=== PATIENT | female | born 1980 | race African-American/Black ===

== ENCOUNTER 2023-09-13 18:38 | Inpatient (IN) | payer SELFPAY ==
[2023-09-13] MEDS ORDERED: FUROSEMIDE 20 MG/ 2ML VIAL ONE ×2 (19:49→23:12)
[2023-09-13 20:26] LABS: Specific Gravity 1.005 (1.005-1.030); Sqamous Epithelial <5 /HPF (None Seen); Urine Bacteria <20 /HPF (<20); Urine Bilirubin NEGATIVE (Negative); Urine Blood 3+ (Negative); Urine Clarity Turbid (Clear); Urine Color Light-Yellow (Yellow); Urine Culture Reflex Order REFLEXED; Urine Glucose NEGATIVE (Negative); Urine Ketones NEGATIVE (Negative); Urine Micro Reflex YN NO BILL MICROSCOPIC; Urine Nitrite NEGATIVE (Negative); Urine Protein TRACE (Negative); Urine RBC <5 /HPF (None Seen); Urine Urobilinogen Normal (Normal); Urine pH 6.5 (5.0-7.0)
[2023-09-13 20:27] LABS: Specific Gravity 1.005 (1.005-1.030)
--- NOTE | 2023-09-13 20:32 | RAD REPORT ---
EXAM DESCRIPTION: RAD - Chest Single View - 09/13/2023 8:20 pm CLINICAL HISTORY: SOB;Swelling COMPARISON: No comparisons FINDINGS: Lines: None. Lungs: No evidence of edema or pneumonia. Pleural: No significant pleural effusions or pneumothorax. Cardiac: Moderate cardiomegaly. Mediastinum: Within normal limits. Bones: No acute fractures. Other: None IMPRESSION: No acute cardiopulmonary disease. Moderate cardiomegaly.
[2023-09-13 20:34] LABS: Absolute Eosinophils 0.1 K/uL (0-0.5); Absolute Lymphocytes (CBC) 1.1 K/uL (0.7-4.9); Absolute Monocytes 0.5 K/uL (0.1-1.3); Absolute Neutrophil 4.7 K/uL (1.8-8.0); Basophils % 0.4 % (0-1.3); Eosinophils % 2.2 % (0-4.4); Hematocrit 26.6 % (36.0-45.0); Hemoglobin 7.9 g/dL (12.0-15.0); Lymphocytes % 16.6 % (15.3-44.8); MCH 18.6 pg (27.0-35.0); MCHC 29.7 g/dL (32.0-36.0); MCV 62.8 fL (80-100); Monocytes % 7.3 % (3.3-12.3); Neutrophils % 73.5 % (41.7-73.7); Nucleated Red Blood Cells % 0.3 % (0-0); Platelets 342 thou/uL (152-406); RBC Red Blood Cell Count 4.24 M/uL (3.86-4.86)
[2023-09-13 20:42] LABS: Albumin 3.1 g/dL (3.4-5.0); Albumin/Globulin Ratio 0.9 (1.1-1.8); Anion Gap 7.6 mEq/L (5.0-15.0); Bilirubin Direct 0.2 mg/dL (0-0.2); Bilirubin Indirect, Calculated 0.3 mg/dL (0.2-0.8); Bilirubin Total 0.5 mg/dL (0.2-1.0); Globulin 3.4 g/dL (2.3-3.5); Magnesium 1.5 mg/dL (1.6-2.4); Potassium 3.6 mEq/L (3.5-5.1); Protein, Total 6.5 g/dL (6.4-8.2); Troponin High Sensitivity 55.9 pg/mL (<58.9)
[2023-09-13 21:02] LABS: PT Prothrombin Time 11.7 SECONDS (9.5-12.5); Protime INR 1.07
[2023-09-13 21:11] LABS: Anisocytosis 2+; Blood Morphology Comment NOTED (NOT SEEN); Hypochromasia 2+; Microcytosis 2+; Ovalocytes 1+; Platelet Estimate ADEQ; Poikilocytosis 1+; Polychromasia 1+; White Blood Cell Scan OK (OK)
--- NOTE | 2023-09-13 21:17 | ER ---
Nurse's Notes [facility] Name: Ara Pollock Age: 42 yrs Sex: Female : 1980 Arrival Date: 09/13/2023 Time: 18:38 Bed 7 Private MD: Diagnosis: Unspecified combined systolic (congestive) and diastolic (congestive) heart failure Presentation: 09/12 18:50 Chief complaint: Patient states: bilateral leg/feet swelling. Coronavirus screen: At as6 this time, the client does not indicate any symptoms associated with coronavirus-19. Ebola Screen: No symptoms or risks identified at this time. Initial Sepsis Screen: Does the patient meet any 2 criteria? No. Patient's initial sepsis screen is negative. Does the patient have a suspected source of infection? No. Patient's initial sepsis screen is negative. Risk Assessment: Do you want to hurt yourself or someone else? Patient reports no desire to harm self or others. Onset of symptoms was September 01, 2023. 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 - Social history:: Smoking status: Patient reports the use of cigarette tobacco products, denies chronic smoking, but will smoke occasionally. Screenin:06 [facility] ED Fall Risk Assessment (Adult) History of falling in the last 3 months, cm10 including since admission No falls in past 3 months (0 pts) Confusion or Disorientation No (0 pts) Intoxicated or Sedated No (0 pts) Impaired Gait No (0 pts) Mobility Assist Device Used No (0 pt) Altered Elimination No (0 pt) Score/Fall Risk Level 0 - 2 = Low Risk Oriented to surroundings, Maintained a safe environment, Hourly rounding (assess needs \T\ fall precautionary measures) done. Abuse screen: Denies threats or abuse. Denies injuries from another. Nutritional screening: No deficits noted. Tuberculosis screening: No symptoms or risk factors identified. Assessment: 20:04 General: Appears in no apparent distress. comfortable, Behavior is calm, cooperative. cm10 Pain: Complains of pain in right leg and left leg. Neuro: No deficits noted. Level of Consciousness is awake, alert, obeys commands, Oriented to person, place, time, situation. Cardiovascular: Reports shortness of breath, Patient's skin is warm and dry. Respiratory: No deficits noted. Airway is patent Respiratory effort is even, unlabored, Respiratory pattern is regular, symmetrical. Derm: Skin is intact, Skin is pink, warm \T\ dry. Musculoskeletal: Range of motion: intact in all extremities, Swelling present in right leg and left leg. 20:41 Reassessment: Pt noted to be in her regular clothes and walking in front of the nurses cm10 station. Patient states that she is going outside to smoke. Pt made aware that she cannot go outside to smoke with an IV in her arm. Pt states that she would like the IV taken out and she would like to leave. Marco Seals made aware. Per provider, pt will be returning after smoking. Pt leaving ambulatory with steady gait, A\T\Ox4. 21:16 Reassessment: Pt noted to have not returned back to ED. Provider made aware. cm10 21:43 Reassessment: Pt returned back to the ED at this time and states that she would like to cm10 continue being seen. 23:04 Reassessment: Pt noted to be eating at this time. cm10 09/13 01:00 Reassessment: Patient appears in no apparent distress at this time. Patient and/or cm10 family updated on plan of care and expected duration. Pain level reassessed. Patient is alert, oriented x 3, equal unlabored respirations, skin warm/dry/pink. Vital Signs: 09/12 18:50 BP 169 / 118; Pulse 94; Resp 18 S; Temp 97.4(TE); Pulse Ox 100% on R/A; Weight 49.9 kg as6 (R); Height 5 ft. 1 in. (R); Pain 9/10; 19:54 BP 176 / 108; Pulse 90; Resp 18; Pulse Ox 99% ; cm10 20:00 BP 169 / 105; Pulse 88; Resp 16; Pulse Ox 99% ; cm10 21:59 BP 176 / 120; Pulse 80; Resp 18; Pulse Ox 100% on R/A; cm10 23:02 BP 172 / 103; Pulse 81; Resp 18; Pulse Ox 100% on R/A; cm10 23:29 BP 142 / 89; Pulse 80; Resp 18; Pulse Ox 100% on R/A; cm10 09/13 01:19 BP 157 / 81; Pulse 82; Resp 18; Temp 97.3(IR); Pulse Ox 100% ; cm10 09/12 18:50 Body Mass Index 20.78 (49.90 kg, 154.94 cm) as6 09/12 18:50 Pain Scale: Adult as6 ED Course: 09/12 18:45 Patient arrived in ED. ra3 18:45 Marco Seals PA is PHCP. cp 18:45 Alexey Mendez MD is Attending Physician. cp 18:52 Triage completed. as6 18:52 Arm band placed on. as6 18:53 Mich Gould, RN is Primary Nurse. bp 19:23 Amado Villatoro MD is Attending Physician. cp 19:59 EKG done, by ED staff, reviewed by Marco MORALES. mb9 20:04 Basic Metabolic Panel Sent. cm10 20:04 CBC with Diff Sent. cm10 20:04 D-Dimer Sent. cm10 20:04 LFT's Sent. cm10 20:04 Magnesium Sent. cm10 20:04 NT PRO-BNP Sent. cm10 20:04 PT-INR Sent. cm10 20:04 Troponin HS Sent. cm10 20:04 Test, Urine Sent. cm10 20:04 Urinalysis W/Microscopic Sent. cm10 20:04 Initial lab(s) drawn, by ak, sent to lab. Urine collected: clean catch specimen. cm10 Inserted saline lock: 20 gauge in right forearm, using aseptic technique. Blood collected. 20:06 Patient has correct armband on for positive identification. Placed in gown. Bed in low cm10 position. Call light in reach. Side rails up X2. Provided Education on: ER process and procedures.. Client placed on continuous cardiac and pulse oximetry monitoring. NIBP monitoring applied. library monitor on. Door closed. Noise minimized. Warm blanket given. 20:22 XRAY Chest (1 view) In Process Unspecified. EDMS 20:41 IV discontinued, intact, bleeding controlled, No redness/swelling at site. Pressure cm10 dressing applied. 21:43 Primary Nurse role handed off by Mich Gould, RN cm10 21:59 Katja Couch, RN is Primary Nurse. cm10 22:[address] via stretcher. cm10 22:24 Inserted saline lock: 20 gauge in left forearm, using aseptic technique. cm10 22:29 CT Chest For PE Angio In Process Unspecified. EDMS 22:41 Patient moved back from CT. cm10 23:02 Nurse Practitioner and/or Physician Correctional Lieutenant to see patient. cm10 23:07 Monik Jesus MD is Hospitalizing Provider. cp 23:30 Admitting physician to see patient. cm10 09/13 00:38 US Extremity Venous W Compression Barry In Process Unspecified. EDMS 01:20 No provider procedures requiring assistance completed. Patient admitted, IV remains in cm10 place. Administered Medications: 09/12 20:04 Drug: Furosemide IVP 20 mg IVP once; give over 2 minutes Route: IVP; Site: right cm10 forearm; 23:03 Follow up: Response: No adverse reaction cm10 22:15 Drug: hydrALAZINE IVP 10 mg IVP once Route: IVP; Site: left forearm; cm10 23:03 Follow up: Response: No adverse reaction; Blood pressure is unchanged cm10 23:27 Drug: Furosemide IVP 20 mg IVP once; give over 2 minutes Route: IVP; Site: left forearm;cm10 09/13 01:19 Follow up: Response: No adverse reaction cm10 Medication: 09/12 20:06 VIS not applicable for this client. cm10 Outcome: 21:17 Patient left the ED. cm10 23:07 Decision to Hospitalize by Provider. cp 09/13 01:21 Admitted to ER Hold. Please see [facility] for further documentation. cm10 Condition: good Instructed on the need for admit, 14:12 Patient left the ED. ll1 Signatures: Dispatcher [employer] EDMS Marco Seals PA PA cp Mich Gould, RN Mike Welch RN RN ll1 Remy Hadley RN RN as6 Stephanie Gamble RN RN mb9 Katja Couch RN RN cm10 Madison Parrish ra3 Corrections: (The following items were deleted from the chart) 09/12 21:16 20:41 Reassessment: Pt noted to be in her regular clothes and walking in front of the cm10 nurses station. Patient states that she is going outside to smoke. Pt made aware that she cannot go outside to smoke with an IV in her arm. Pt states that she would like the IV taken out and she would like to leave. Marco Seals made aware. cm10 21:30 20:41 Reassessment: Pt noted to be in her regular clothes and walking in front of the cm10 nurses station. Patient states that she is going outside to smoke. Pt made aware that she cannot go outside to smoke with an IV in her arm. Pt states that she would like the IV taken out and she would like to leave. Marco Seals made aware. Per provider, pt will be returning after smoking. cm10
[2023-09-13] MEDS ORDERED: HYDRALAZINE HCL 20 MG/ML VIAL ONE (22:11)
--- NOTE | 2023-09-13 22:35 | RAD REPORT ---
EXAM DESCRIPTION: CT - Chest For Pe Angio - 09/13/2023 10:27 pm CLINICAL HISTORY: SOB COMPARISON: No comparisons TECHNIQUE: Dynamically enhanced axial 3 mm thick images of the chest were obtained during administra tion of <100> mL Isovue 370 IV contrast. Coronal and oblique reconstruction images were generated and reviewed. Exam utilizes a protocol for optimal evaluation of pulmonary arterial tree. Maximum intensity projections 3D imaging was utilized All CT scans are performed using dose optimization technique as appropriate and may include automated exposure control or mA/KV adjustment according to patient size. FINDINGS: Chest Wall: No suspicious thyroid nodules or pathologic lymphadenopathy. Lungs: No acute abnormality. Pleura: No significant effusions or pneumothorax. Mediastinum/genoveva: No pathologic lymphadenopathy. Pulmonary arteries/Aorta: No filling defect identified. No aortic aneurysm. Enlarged main pulmonary a rtery. Heart: No significant pericardial effusion. Moderate global cardiomegaly. Upper abdomen: Low-density liver lesions noted which are incompletely characterized but statistically benign. .Reflux of contrast into the hepatic veins. Bones: No acute abnormality. IMPRESSION: Negative for pulmonary embolism. Moderate global cardiomegaly. Enlarged main pulmonary a rtery and reflux of contrast into the hepatic veins suggestive of pulmonary artery hypertension/right heart failure.
--- NOTE | 2023-09-13 23:08 | EDPHYS ---
Physician Documentation [facility] Name: Ara Pollock Age: 42 yrs Sex: Female : 1980 Arrival Date: 09/13/2023 Time: 18:38 Bed 7 Private MD: ED Physician Amado Villatoro HPI: 09/12 19:50 This 42 yrs old Black Female presents to ER via Ambulatory with complaints of Feet cp Swelling. 19:50 The patient has shortness of breath with light activity. Onset: The symptoms/episode cp began/occurred gradually, over past 1-2 weeks. Duration: The symptoms are continuous, and are steadily getting worse. Associated signs and symptoms: Pertinent positives: swelling of legs, weight gain, Pertinent negatives: chest pain, non-productive cough, diaphoresis, fever, vomiting. Severity of symptoms: in the emergency department the symptoms are unchanged despite home interventions. The patient has not experienced similar symptoms in the past. 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 - Social history:: Smoking status: Patient reports the use of cigarette tobacco products, denies chronic smoking, but will smoke occasionally. ROS: 19:55 Constitutional: Positive for fatigue, Negative for body aches, chills, fever, poor PO cp intake, 19:55 Eyes: Negative for injury, pain, redness, and discharge, cp 19:55 ENT: Negative for drainage from ear(s), ear pain, sore throat, difficulty swallowing, difficulty handling secretions, 19:55 Cardiovascular: Positive for edema, Negative for chest pain, palpitations, 19:55 Respiratory: Positive for shortness of breath, on exertion. Negative for cough, wheezing, 19:55 Abdomen/GI: Negative for abdominal pain, vomiting, diarrhea, constipation, 19:55 : Negative for urinary symptoms, 19:55 Neuro: Negative for altered mental status, headache, numbness, syncope, near syncope, weakness, 19:55 All other systems are negative, Exam: 20:00 Constitutional: The patient appears in no acute distress, alert, awake, cp non-diaphoretic, non-toxic, well developed, well nourished, 20:00 Head/Face: Normocephalic, atraumatic. cp 20:00 Eyes: Periorbital structures: appear normal, Conjunctiva: normal, no exudate, no injection, Sclera: no appreciated abnormality, Lids and lashes: appear normal, bilaterally, 20:00 ENT: External ear(s): are unremarkable, Nose: is normal, Mouth: Lips: moist, Oral mucosa: pink and intact, moist, Posterior pharynx: Airway: no evidence of obstruction, patent, swelling, is not appreciated, erythema, is not appreciated, 20:00 Neck: ROM/movement: is normal, is supple, without pain, no range of motions limitations, 20:00 Chest/axilla: Inspection: normal, 20:00 Cardiovascular: Rate: normal, Rhythm: regular, Edema: extending from feet to lower abdomen, JVD: is not appreciated, 20:00 Respiratory: the patient does not display signs of respiratory distress, Respirations: labored breathing, that is mild, Breath sounds: are clear throughout, no decreased breath sounds, no stridor, no wheezing, 20:00 Abdomen/GI: Inspection: distension, that is mild, in the right lower quadrant and left lower quadrant, Bowel sounds: active, all quadrants, Palpation: abdomen is soft and non-tender, in all quadrants, 20:00 Back: pain, is absent, ROM is normal, 20:00 Skin: cellulitis, is not appreciated, no rash present. 20:00 Neuro: Orientation: to person, place \T\ time. Mentation: is normal, Motor: moves all fours, strength is normal, Sensation: is normal, Vital Signs: 18:50 BP 169 / 118; Pulse 94; Resp 18 S; Temp 97.4(TE); Pulse Ox 100% on R/A; Weight 49.9 kg as6 (R); Height 5 ft. 1 in. (R); Pain 9/10; 19:54 BP 176 / 108; Pulse 90; Resp 18; Pulse Ox 99% ; cm10 20:00 BP 169 / 105; Pulse 88; Resp 16; Pulse Ox 99% ; cm10 21:59 BP 176 / 120; Pulse 80; Resp 18; Pulse Ox 100% on R/A; cm10 23:02 BP 172 / 103; Pulse 81; Resp 18; Pulse Ox 100% on R/A; cm10 23:29 BP 142 / 89; Pulse 80; Resp 18; Pulse Ox 100% on R/A; cm10 04 01:19 BP 157 / 81; Pulse 82; Resp 18; Temp 97.3(IR); Pulse Ox 100% ; cm10 09/12 18:50 Body Mass Index 20.78 (49.90 kg, 154.94 cm) as6 09/12 18:50 Pain Scale: Adult as6 MDM: 09/12 19:01 Patient medically screened. cp 20:00 Differential diagnosis: Anemia asthma, CHF exacerbation, Chronic Obstructive Pulmonary cp Disease Myocardial Infarction pneumonia, pulmonary edema, Pulmonary Embolism Unstable Angina. 23:10 Data reviewed: vital signs, nurses notes, lab test result(s), EKG, radiologic studies, cp CT scan, plain films, ultrasound, and as a result, I will admit patient. 23:10 Management of patient was discussed with the following: Hospitalist: DR Jesus will admit cp after discussion. I considered the following discharge prescriptions or medication management in the emergency department Medications were administered in the Emergency Department. See MAR. Counseling: I had a detailed discussion with the patient and/or guardian regarding the historical points, exam findings, and any diagnostic results supporting the discharge/admit diagnosis, the presence of at least one elevated blood pressure reading (>120/80) during this emergency department visit, lab results, radiology results, the need for further work-up and treatment in the hospital. Response to treatment: the patient's symptoms have mildly improved after treatment. 09/12 19:43 Order name: Basic Metabolic Panel; Complete Time: 20:51 cp 09/12 20:52 Interpretation: Normal except: CL 108; CRE 1.13; GFR 63; CA 8.2. cp 09/12 19:43 Order name: CBC with Diff; Complete Time: 21:56 cp 09/12 20:53 Interpretation: Normal except: HGB 7.9; HCT 26.6; MCV 62.8; MCH 18.6; MCHC 29.7; RDW cp 22.0. 09/12 19:43 Order name: D-Dimer; Complete Time: 21:56 cp 09/12 19:43 Order name: LFT's; Complete Time: 20:51 cp 09/12 20:52 Interpretation: Normal except: ALK 160; ALB 3.1; A/G 0.9. cp 09/12 19:43 Order name: Magnesium; Complete Time: 20:51 cp 09/12 20:53 Interpretation: Abnormal: MG 1.5. cp 09/12 19:43 Order name: NT PRO-BNP; Complete Time: 20:51 cp 09/12 20:52 Interpretation: Abnormal: NT PRO-BNP 9649. cp 09/12 19:43 Order name: PT-INR; Complete Time: 21:56 cp 09/12 19:43 Order name: Troponin HS; Complete Time: 20:51 cp 09/12 19:43 Order name: Urinalysis W/Microscopic; Complete Time: 20:34 cp 09/12 20:54 Interpretation: Normal except: UCLA Turbid; UBLD 3+; UPROT TRACE; UESTR 250; UWBC 10-20.cp 09/12 19:43 Order name: Test, Urine; Complete Time: 20:34 cp 09/12 20:33 Order name: Urine Culture EDNH 09/12 21:11 Order name: CBC Smear Scan; Complete Time: 21:56 EDMS 09/12 23:57 Order name: CBC with Automated Diff EDMS 09/12 23:57 Order name: CBC with Automated Diff; Complete Time: 12:58 EDMS 09/12 23:57 Order name: Comprehensive Metabolic Panel EDMS 09/12 23:57 Order name: Comprehensive Metabolic Panel; Complete Time: 12:58 EDMS 09/12 23:57 Order name: Lipid Profile EDMS 09/12 23:57 Order name: Lipid Profile; Complete Time: 12:58 EDMS 09/12 23:57 Order name: Magnesium EDMS 09/12 23:57 Order name: Magnesium; Complete Time: 12:58 EDMS 09/12 23:57 Order name: NT PRO-BNP EDMS 09/12 23:57 Order name: NT PRO-BNP; Complete Time: 12:58 EDMS 09/12 23:57 Order name: Phosphorus EDMS 09/12 23:57 Order name: Phosphorus; Complete Time: 12:58 EDMS 09/12 23:57 Order name: Protime (+INR) EDMS 09/12 23:57 Order name: Protime (+INR); Complete Time: 12:58 EDMS 09/12 23:57 Order name: PTT, Activated Partial Thromb EDMS 09/12 23:57 Order name: PTT, Activated Partial Thromb; Complete Time: 12:58 EDMS 09/12 23:57 Order name: Troponin High Sensitivity EDMS 09/12 23:57 Order name: Troponin High Sensitivity; Complete Time: 12:58 EDMS 09/13 00:00 Order name: Aldosterone EDMS 09/13 00:00 Order name: Aldosterone EDMS 09/13 00:00 Order name: Miscellaneous Test Lab EDMS 09/13 00:00 Order name: Miscellaneous Test Lab EDMS 09/13 00:26 Order name: Iron; Complete Time: 12:58 EDMS 09/13 00:26 Order name: Ferritin; Complete Time: 12:58 EDMS 09/13 00:26 Order name: Retic Count; Complete Time: 12:58 EDMS 09/13 09:21 Order name: Transferrin Sat/Iron Binding; Complete Time: 12:58 EDMS 09/13 09:57 Order name: CBC Smear Scan; Complete Time: 12:58 EDMS 09/13 11:11 Order name: Potassium; Complete Time: 12:58 EDMS 09/13 12:26 Order name: Troponin High Sensitivity; Complete Time: 12:58 EDMS 09/12 19:43 Order name: XRAY Chest (1 view); Complete Time: 20:34 cp 09/12 20:51 Order name: US Extremity Venous W Compression Barry; Complete Time: 12:58 cp 09/12 21:58 Order name: CT Chest For PE Angio; Complete Time: 22:56 cp 09/12 23:57 Order name: Echo with Doppler EDMS 09/13 00:00 Order name: Chest Single View; Complete Time: 12:58 EDMS 09/13 00:00 Order name: Pelvis Complete EDMS 09/13 00:00 Order name: Pelvis Complete; Complete Time: 12:58 EDMS 09/12 23:57 Order name: CONS Physician Consult EDMS 09/12 19:43 Order name: Cardiac monitoring; Complete Time: 19:59 cp 09/12 19:43 Order name: EKG - Nurse/Tech; Complete Time: 19:59 cp 09/12 19:43 Order name: IV Saline Lock; Complete Time: 20:04 cp 09/12 19:43 Order name: Labs collected and sent; Complete Time: 20:04 cp 09/12 19:43 Order name: O2 Per Protocol; Complete Time: 20:04 cp 09/12 19:43 Order name: O2 Sat Monitoring; Complete Time: 20:04 cp Administered Medications: 20:04 Drug: Furosemide IVP 20 mg IVP once; give over 2 minutes Route: IVP; Site: right cm10 forearm; 23:03 Follow up: Response: No adverse reaction cm10 22:15 Drug: hydrALAZINE IVP 10 mg IVP once Route: IVP; Site: left forearm; cm10 23:03 Follow up: Response: No adverse reaction; Blood pressure is unchanged cm10 23:27 Drug: Furosemide IVP 20 mg IVP once; give over 2 minutes Route: IVP; Site: left forearm;cm10 09/13 01:19 Follow up: Response: No adverse reaction cm10 Disposition Summary: 09/13/23 23:07 Hospitalization Ordered Notes: Hospitalization Status: Inpatient Admission cp Provider: Monik Jesus cp Condition: Stable(09/13/23 23:07) cp Problem: new cp Symptoms: have improved cp Bed/Room Type: Standard cp Location: Telemetry/MedSurg (Inpatient)(09/14/23 13:51) jr Room Assignment: 220(09/14/23 13:51) jr Diagnosis - Unspecified combined systolic (congestive) and diastolic (congestive) heart failure cp Forms: - Medication Reconciliation Form cp - SBAR form cp - Leadership Thank You Letter cp Signatures: Dispatcher [employer] EDMS Marco Seals PA PA cp Garcia, Cindy, RN RN cg Slawson, Ashby, RN RN as6 Kajta Couch RN RN cm10 Safia Swenson jr Corrections: (The following items were deleted from the chart) 09/12 19:44 19:44 BASIC METABOLIC PANEL+C.LAB.BRZ ordered. EDMS EDMS 19:44 19:44 CBC+H.LAB.BRZ ordered. EDMS EDMS 19:44 19:44 D-DIMER+COAG.LAB.BRZ ordered. EDMS EDMS 19:44 19:44 HEPATIC FUNCTION+C.LAB.BRZ ordered. EDMS EDMS 19:44 19:44 MAGNESIUM+C.LAB.BRZ ordered. EDMS EDMS 19:44 19:44 PROBNP+C.LAB.BRZ ordered. EDMS EDMS 19: 19:44 PROTIME (+INR)+COAG.LAB.BRZ ordered. EDMS EDMS : 19:44 Troponin High Sensitivity+C.LAB.BRZ ordered. EDMS EDMS : 19:44 Urinalysis W/Microscopic+U.LAB.BRZ ordered. EDMS EDMS : 19:44 Test, Urine+UC.LAB.BRZ ordered. EDMS EDMS :46 21:17 Home cm10 cp 21:46 21:17 Stable cm10 cp 09/13 00:25 00:00 Ferritin ordered. EDMS EDMS 00: 00:00 Iron ordered. EDMS EDMS 00:26 00:00 Retic Count ordered. EDMS EDMS 09/12 23:07 Telemetry/MedSurg (Inpatient) [facility] 09/13 01:34 09/12 23:07 cp 09/13 13:07 09/12 19:50 Associated signs and symptoms: Pertinent positives: swelling of legs, cp Pertinent negatives: chest pain, non-productive cough, diaphoresis, fever, vomiting, cp 09/13 13:51 01:34 [facility] ER HOLD jr12 13:51 01:34 ERHOLD- jr12
[2023-09-13] MEDS ORDERED: ONDANSETRON 4 MG/2 ML VIAL IV PRN (23:49)
--- NOTE | 2023-09-13 23:56 | P.HP ---
Certification for Inpatient Patient admitted to: Inpatient With expected LOS: >2 Midnights Patient will require the following post-hospital care: None Practitioner: I am a practitioner with admitting privileges, knowledge of patient current condition, hospital course, and medical plan of care. Services: Services provided to patient in accordance with Admission requirements found in Title 42 Section 412.3 of the Code of Federal Regulations Patient History Date of Service: 09/13/23 Reason for admission: Shortness of breath - Past Medical/Surgical History -: PTSD -: Anemia -: Depression Past Surgical History: Patient denies surgical history - Family History Father Family History: Reviewed- Non-Contributory - Social History Smoking Status: Current every day smoker Alcohol use: Yes CD- Drugs: Yes Review of Systems 10-point ROS is otherwise unremarkable Physical Examination - Vital Signs Temperature: 98 F Blood Pressure: 140/80 Pulse: 80 Respirations: 18 Pulse Ox (%): 95 - Physical Exam General: Alert, In no apparent distress, Oriented x3 HEENT: Atraumatic, PERRLA, Mucous membr. moist/pink, EOMI, Sclerae nonicteric Neck: Supple, 2+ carotid pulse no bruit, No LAD, JVD distended Respiratory: Crackles/rales Cardiovascular: Regular rate/rhythm, Normal S1 S2, Systolic murmur Gastrointestinal: Normal bowel sounds, Soft and benign, Non-distended, No tenderness Musculoskeletal: No clubbing, No tenderness, Swelling Integumentary: No rashes Neurological: Normal gait, Normal speech, Normal strength at 5/5 x4 extr, Normal tone, Sensation intact, Cranial nerves 3-12 intact, Normal affect Lymphatics: No axilla or inguinal lymphadenopathy - Studies Laboratory Data (last 24 hrs) 09/13/23 09/13/23 09/13/23 20:00 20:00 20:00 WBC 6.50 Hgb 7.9 L Hct 26.6 L Plt Count 342 PT 11.7 INR 1.07 Sodium 138 Potassium 3.6 BUN 13 Creatinine 1.13 H Glucose 92 Magnesium 1.5 L Total Bilirubin 0.5 AST 36 ALT 53 Alkaline Phosphatase 160 H Assessment & Plan - Problems (Diagnosis) (1) Cardiomyopathy Status: Acute Qualifiers: Cardiomyopathy type: unspecified Qualified Code(s): I42.9 - Cardiomyopathy, unspecified (2) Right heart failure Status: Acute Qualifiers: Heart failure chronicity: unspecified Qualified Code(s): I50.810 - Right heart failure, unspecified (3) Acute blood loss anemia (ABLA) Status: Acute (4) Bilateral lower extremity edema Status: Acute (5) Alcohol use Status: Acute (6) Tobacco use Status: Acute (7) Marijuana use Status: Acute (8) Menorrhagia Status: Acute (9) PTSD (post-traumatic stress disorder) Status: Acute (10) Depression Status: Acute (11) Generalized anxiety disorder Status: Acute - Plan Plan: 1. Shortness of breath; most likely related to cardiomyopathy. Patient may have dilated cardiomyopathy secondary to alcohol abuse. She also has a prior history of substance abuse and she does have a holosystolic murmur which is also concerning for hypertrophic cardiomyopathy. Will get an echocardiogram to further evaluate. Continue with gentle diuresing until we can determine her pathology. Patient has bilateral lower extremity edema most likely reflected fr om her right-sided heart failure. JVP is to the angle of the mandible. BNP is significantly elevated. Continue with beta-bree therapy and losartan. Will need to parliamentary counsel her regarding tobacco cessation and alcohol cessation. Will check nutritional levels as well. 2. Anemia of acute blood loss; patient with heavy cycles. Patient has been having menorrhagia for quite a while. Patient has a microcytic and hypochromic anemia. She possibly has severe iron deficiency anemia. With her history of alcohol use would be concerning for folic acid and B12 deficiency as well. She will need a pelvic ultrasound and she will probably need an endometrial biopsy. She has not had a Pap smear in 2 years which she will need to follow-up with gynecology and complete. Will refer her over to Dr. Valdivia. 3. History of tobacco use; counseled regarding cessation. Nicotine patch 4. History of alcohol use; counseled regarding alcohol cessation. Check nutritional status. 5. Posttraumatic stress disorder; patient with depression and anxiety disorder. Continue with olanzapine along with Klonopin and Zoloft. She is following up with a psychiatrist in [place] which she will continue to follow with as an outpatient. I think she uses alcohol and tobacco to help with keeping her relax. She will need more counseling as she definitely will need to refrain from substance use secondary to her cardiac disease. 6. GI and DVT prophylaxis Discharge Plan: Home Plan to discharge in: Greater than 2 days - Advance Directives Does patient have a Living Will: No Does patient have a Durable POA for Healthcare: No - Code Status/Comfort Care Code Status Assessed: Yes Code Status: Full Code Critical Care: No Time Spent Managing PTS Care (In Minutes): 45
[2023-09-14 02:24] VITALS: BMI 20.5
[2023-09-14 03:04] VITALS: O2SAT 99
[2023-09-14] MEDS ORDERED: HYDROCODONE/APAP 10/325 TAB PO PRN (04:25)
[2023-09-14] MEDS ORDERED: METOPROLOL TARTRATE 5 MG/5 ML INJ IV ONE (05:37)
[2023-09-14] MEDS: METOPROLOL TARTRATE 5 MG/5 ML INJ IV STA (05:44)
[2023-09-14] MEDS ORDERED: MORPHINE 2 MG/ML SYR ONE (05:56)
[2023-09-14] MEDS: MORPHINE 2 MG/ML SYR IV PRN (06:05)
[2023-09-14 06:17] LABS: Absolute Eosinophils 0.2 K/uL (0-0.5); Absolute Monocytes 0.6 K/uL (0.1-1.3); Absolute Neutrophil 5.2 K/uL (1.8-8.0); Basophils % 0.5 % (0-1.3); Eosinophils % 2.9 % (0-4.4); Hemoglobin 7.7 g/dL (12.0-15.0); Lymphocytes % 14.3 % (15.3-44.8); MCH 18.4 pg (27.0-35.0); MCHC 29.7 g/dL (32.0-36.0); MCV 61.9 fL (80-100); MPV 7.9 fL (7.6-11.3); Neutrophils % 74.3 % (41.7-73.7); Nucleated Red Blood Cells % 0.2 % (0-0); Percent Reticulocyte Count 2.12 % (0.4-2.05); Platelets 352 thou/uL (152-406); RBC Red Blood Cell Count 4.21 M/uL (3.86-4.86); Red Cell Distribution Width 21.8 % (12.1-15.2)
[2023-09-14] MEDS ORDERED: METOPROLOL TAR 25 MG TAB ONE (06:19)
[2023-09-14] MEDS: METOPROLOL TAR 25 MG TAB PO SCH (06:22)
[2023-09-14 06:29] LABS: PT Prothrombin Time 11.4 SECONDS (9.5-12.5); PTT, Activated Partial Thromb 29.1 SECONDS (24.3-36.9); Protime INR 1.04
[2023-09-14 06:36] LABS: Albumin 2.9 g/dL (3.4-5.0); Albumin/Globulin Ratio 0.9 (1.1-1.8); Anion Gap 7.3 mEq/L (5.0-15.0); Bilirubin Total 0.5 mg/dL (0.2-1.0); Ferritin 4.9 ng/mL (8-388); Globulin 3.2 g/dL (2.3-3.5); Magnesium 1.5 mg/dL (1.6-2.4); Phosphorus 3.9 mg/dL (2.5-4.9); Potassium 3.3 mEq/L (3.5-5.1); Protein, Total 6.1 g/dL (6.4-8.2)
--- NOTE | 2023-09-14 07:12 | RAD REPORT ---
EXAM DESCRIPTION: RAD - Chest Single View - 09/14/2023 4:40 am CLINICAL HISTORY: pneumonia COMPARISON: Chest Single View dated 09/13/2023; Chest For Pe Angio dated 09/13/2023 FINDINGS: Lines: None. Lungs: No evidence of edema or pneumonia. Pleural: No significant pleural effusions or pneumothorax. Cardiac: Moderate cardiomegaly. Mediastinum: Within normal limits. Bones: No acute fractures. Other: None IMPRESSION: No acute cardiopulmonary disease. Moderate cardiomegaly.
--- NOTE | 2023-09-14 07:29 | RAD REPORT ---
EXAM DESCRIPTION: US - Pelvis Complete - 09/14/2023 7:17 am CLINICAL HISTORY: Menorrhagia Pelvic pain. COMPARISON: No comparisons FINDINGS: Note that the patient refused a transvaginal. The uterus is normal in size, shape and echotexture. The uterus measures 10 cm by 3.5 x 4.8 cm with v olume of 86 cc. Intramural fibroid noted measuring 2.2 x 1.7 cm. The endometrial stripe measures 10 mm, within normal limits for age. Both ovaries are normal in size, shape and echotexture. The right ovary measures 3.5 x 2 x 2.1 cm wi th volume of 7.6 cc. The left ovary measures 3.4 x 2.3 x 1.7 with volume of 7.2 cc. No ovarian or pa rovarian lesions. No adnexal masses. Normal Doppler blood flow was demonstrated to both ovaries. Small volume of pelvic free fluid. IMPRESSION: Bilateral ovarian blood flow is present. Small intramural fibroid. Small volume of free fluid which may be physiologic.
--- NOTE | 2023-09-14 07:31 | RAD REPORT ---
EXAM DESCRIPTION: US - Extrem Venous W Compress Barry - 09/14/2023 12:37 am CLINICAL HISTORY: Swelling;Pain COMPARISON: No comparisons TECHNIQUE: Real-time sonographic evaluation of the lower extremity deep venous systems was performed using color Doppler, grayscale, and compression. FINDINGS: Bilateral lower extremities. Normal compressibility, flow augmentation, phasic flow and spontaneous flow is identified in both the left and right lower extremity deep venous systems. No intraluminal filling defects seen. IMPRESSION: No DVT in either lower extremity.
[2023-09-14] MEDS ORDERED: ENOXAPARIN 40 MG/0.4 ML SQ ONE (07:42)
[2023-09-14] MEDS ORDERED: FUROSEMIDE 40 MG/4 ML VIAL ONE (07:42)
[2023-09-14] MEDS ORDERED: ASPIRIN EC 325 MG TABLET PO ONE (07:42)
[2023-09-14] MEDS ORDERED: LOSARTAN POTASSIUM 50 MG TABLET ONE (07:42)
[2023-09-14] MEDS ORDERED: ASPIRIN EC 81 MG TAB PO ONE (07:43)
[2023-09-14] MEDS: LOSARTAN POTASSIUM 50 MG TABLET PO SCH (08:24)
[2023-09-14] MEDS: ASPIRIN EC 81 MG TAB PO SCH (08:24)
[2023-09-14] MEDS: ENOXAPARIN 40 MG/0.4 ML SQ SCH (08:24)
[2023-09-14] MEDS: FUROSEMIDE 40 MG/4 ML VIAL IV SCH (08:24)
[2023-09-14 09:15] VITALS: TEMP 97.9
[2023-09-14] MEDS ORDERED: POTASSIUM 25 MEQ EFFERV TAB ONE (09:29)
[2023-09-14] MEDS ORDERED: Magnesium Sulfate 2gm IVPB 2 G/50 ML BAG IV ONE (09:29)
[2023-09-14] MEDS: POTASSIUM 25 MEQ EFFERV TAB PO ONE (09:30)
[2023-09-14] MEDS: Magnesium Sulfate 2gm IVPB 2 G/50 ML BAG IV ONE (09:30)
[2023-09-14 09:56] LABS: Platelet Estimate ADEQ; White Blood Cell Scan OK (OK)
[2023-09-14 09:57] LABS: Anisocytosis 2+; Blood Morphology Comment NOTED (NOT SEEN); Hypochromasia 2+
--- NOTE | 2023-09-14 11:25 | P.PN ---
Date of Service: 09/14/23 Subjective: Breathing slightly more comfortably today lower extremity edema slowly improving +bilateral leg pain ROS: 10 point ROS as noted above, otherwise negative Physical Exam: GEN: Alert, oriented, NAD HEENT: Normal conjunctiva, sclera anicteric CV: Regular rate and rhythm, 1-2+ bilateral lower extremity edema to knee, Systolic murmur Pulm: Nonlabored respirations on room air, clear bilaterally ABD: Soft, nontender, nondistended MSK: No joint tenderness Integumentary: No rashes Neuro: Normal speech, normal affect vitals reviewed Problem List: Dyspnea Cardiomyopathy Right heart Failure NSTEMI Bilateral lower extremity edema Acute Blood loss anemia / iron deficiency anemia Menorrhagia Alcohol/tobacco/polysubstance use PTSD/Depression/anxiety disorder Menorrhagia Dyspnea Cardiomyopathy Right heart Failure NSTEMI Bilateral lower extremity edema Dyspnea likely related to cardiomyopathy. Patient with hx of polysubstance abuse and does have holysystolic murmer raising concern for hypoertrophic cardiomyopathy. Denies hx of cardiomyopathy / has never been told shes had an enlarged heart. CTA chest (09/12): no PE. moderate global cardiomegaly. Enlarged main pulm artery and reflux of contrast into the hepatic veins suggestive of Pulm htn / right heart failure CXR (09/12): moderate cardiomegaly otherwise negative Venous u/s (09/12): no DVT troponins mildly elevated. monitor on telemetry BNP 9700 on admisison; improving d-dimer elevated 906; CTA negative for PE continue IV lasix continue metoprolol, aspirin 81 mg, statin echo ordered to eval EF / stenosis Cardiology consulted urine cx with +250 LE, +10-20 WBC otherwise unremarkable; urine culture obtained Acute Blood loss anemia / iron deficiency anemia Menorrhagia patient reports heavy cycles for many months. Hasn't had pap spear in 2 years - will need to f/u with gynecology as outpatient pelvic u/s (09/13): Small intramural fibroid. Bilateral ovarian blood flow p resent. small volume of free fluid. iron studies this hospitalization consistent with severe iron deficiency anemia (iron 18, tsat% 3.7%) monitor H&H Alcohol/tobacco/polysubstance use hx marijuana/cocaine use. +alcohol/tobacco cessation advised. PTSD/Depression/anxiety disorder confirm home meds takes clonazepam, sertraline, olanzapine at home Follows up with psych in [place] VTE: Lovenox Code: Full Dispo: Home ~2 days
--- NOTE | 2023-09-14 13:39 | EKG ---
Test Date: 2023-09-13 Test Time: 19:46:02 Production Control Analyst: MB MEASUREMENT RESULTS: Intervals: Rate: 90 OK: 188 QRSD: 100 QT: 394 QTc: 481 [place]: P: 58 OK: 188 QRS: 61 T: 253 INTERPRETIVE STATEMENTS: Normal sinus rhythm Possible Left atrial enlargement Left ventricular hypertrophy with repolarization abnormality Prolonged QT Abnormal ECG No previous ECG available for comparison Electronically Signed On 09-14-23 13:36:21 CDT by Jorge Vazquez
[2023-09-14 13:43] VITALS: BP 149/132
== END 2023-09-14 13:45 | disposition left against medical advice (07) | DRG 281 ==
LOC: ER 18:38 → ERHOLD 23:49
PROVIDERS: ADMIT Hospitalist; ATTEND Hospitalist
DX: I42.6 Alcoholic cardiomyopathy (principal); D62 Acute posthemorrhagic anemia; I21.4 Non-ST elevation (NSTEMI) myocardial infarction; F10.10 Alcohol abuse, uncomplicated; I42.0 Dilated cardiomyopathy; I11.0 Hypertensive heart disease with heart failure; I50.810 Right heart failure, unspecified; N92.0 Excessive and frequent menstruation with regular cycle; F43.10 Post-traumatic stress disorder, unspecified; D50.9 Iron deficiency anemia, unspecified; F32.A Depression, unspecified; F41.1 Generalized anxiety disorder; I27.29 Other secondary pulmonary hypertension; F17.200 Nicotine dependence, unspecified, uncomplicated; Z71.6 Tobacco abuse counseling
CPT/HCPCS: 36415; 71045; 71275; 76856; 80048; 80053; 80061; 80076; 81001; 81025; 82088; 82728; 83540; 83735; 83880; 84100; 84132; 84466; 84484; 85025; 85044; 85379; 85610; 85730; 87086; 87088; 93005; 93970; J0360; J1650; J1940; J2270; J3475; Q9967

== ENCOUNTER 2024-02-11 16:32 | Emergency (ER) | payer BC, SELFPAY ==
--- OUTSIDE RECORDS SUMMARY | 2024-02-11 16:35 | XMS REPORT | Continuity of Care Document ---
Author Name Unknown Address [address] [place] [address] [place] [address] thconnect Address [address] [place] [address] [address] [place] [address] Care Team Providers Care Drying Machine Tender Name Role Phone NADEGE PIÑA Attending Clinician Unava ilable Encounters Start Date/Time End Date/Time Encounter Type Admission Type Attending Clinicians Care Facility Care Department Encounter ID Source 2023-07-23 09:30:00 2023-07-23 09:30:00 Outpatient NADEGE [facility] [id number] Patti Vasquez
[2024-02-11] MEDS ORDERED: AMLODIPINE 10 MG TAB ONE (17:06)
[2024-02-11] MEDS ORDERED: clonazePAM 1 MG TAB ONE (17:07)
[2024-02-11 17:31] LABS: Absolute Lymphocytes (CBC) 1.1 K/uL (0.7-4.9); Absolute Monocytes 0.4 K/uL (0.1-1.3); Absolute Neutrophil 8.5 K/uL (1.8-8.0); Basophils % 0.3 % (0-1.3); Eosinophils % 0.2 % (0-4.4); Hematocrit 35.1 % (36.0-45.0); Hemoglobin 10.8 g/dL (12.0-15.0); Lymphocytes % 11.2 % (15.3-44.8); MCH 20.3 pg (27.0-35.0); MCHC 30.7 g/dL (32.0-36.0); MCV 66.1 fL (80-100); MPV 8.3 fL (7.6-11.3); Monocytes % 3.9 % (3.3-12.3); Neutrophils % 84.4 % (41.7-73.7); Platelets 299 thou/uL (152-406); RBC Red Blood Cell Count 5.31 M/uL (3.86-4.86); Red Cell Distribution Width 25.4 % (12.1-15.2)
[2024-02-11 17:33] LABS: Anisocytosis 3+; Blood Morphology Comment NOTED (NOT SEEN); Microcytosis 1+; Platelet Estimate ADEQ; White Blood Cell Scan OK (OK)
[2024-02-11 17:34] LABS: Hypochromasia 1+
[2024-02-11 17:43] LABS: Albumin 4.5 g/dL (3.4-5.0); Albumin/Globulin Ratio 1.1 (1.1-1.8); Anion Gap 13.8 mEq/L (5.0-15.0); Bilirubin Total 0.4 mg/dL (0.2-1.0); Globulin 4.2 g/dL (2.3-3.5); Potassium 3.8 mEq/L (3.5-5.1); Protein, Total 8.7 g/dL (6.4-8.2)
[2024-02-11 17:59] LABS: Troponin High Sensitivity 59.9 pg/mL (<58.9)
--- NOTE | 2024-02-11 19:51 | EDPHYS ---
Physician Documentation [facility] Name: Ara Pollock Age: 43 yrs Sex: Female : 1980 Arrival Date: 02/11/2024 Time: 16:32 Bed 19 Private MD: ED Physician Yuan Clifford HPI: 02/10 17:53 This 43 yrs old Black Female presents to ER via Ambulatory with complaints of High rt Blood Pressure, Medication Refill. 17:53 Patient presents to the ED with reported hypertension requesting Klonopin refill. She rt states that she has been using 2/day rather than 1/day with past several days due to her dog dying. She was at her psychiatrist office for a refill. They noted that her blood pressure was high. She denies any physical symptoms at this time. Symptoms are moderate in severity, no other aggravating or elevating factors.. 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 - Infectious Disease History:: Denies. - Social history:: Smoking status: Patient reports the use of cigarette tobacco products, smokes one-half pack cigarettes per day, Patient uses alcohol, only on a social basis. - Family history:: not pertinent. ROS: 17:53 Constitutional: Negative for fever, chills, and weight loss, Cardiovascular: Negative rt for chest pain, palpitations, and edema, Respiratory: Negative for shortness of breath, cough, wheezing, and pleuritic chest pain, Abdomen/GI: Negative for abdominal pain, nausea, vomiting, diarrhea, and constipation, MS/Extremity: Negative for injury and deformity, Skin: Negative for injury, rash, and discoloration, 17:53 Psych: Positive for anxiety, Negative for suicidal ideation, Exam: 17:53 Constitutional: This is a well developed, well nourished patient who is awake, alert, rt and in no acute distress. Head/Face: Normocephalic, atraumatic. Chest/axilla: Normal chest wall appearance and motion. Nontender with no deformity. No lesions are appreciated. Cardiovascular: Regular rate and rhythm with a normal S1 and S2. No gallops, murmurs, or rubs. Normal PMI, no JVD. No pulse deficits. Respiratory: Lungs have equal breath sounds bilaterally, clear to auscultation and percussion. No rales, rhonchi or wheezes noted. No increased work of breathing, no retractions or nasal flaring. Abdomen/GI: Soft, non-tender, with normal bowel sounds. No distension or tympany. No guarding or rebound. No evidence of tenderness throughout. Skin: Warm, dry with normal turgor. Normal color with no rashes, no lesions, and no evidence of cellulitis. MS/ Extremity: Pulses equal, no cyanosis. Neurovascular intact. Full, normal range of motion. Neuro: Awake and alert, GCS 15, oriented to person, place, time, and situation. Cranial nerves II-XII grossly intact. Motor strength 5/5 in all extremities. Sensory grossly intact. Cerebellar exam normal. Normal gait. 17:53 ECG was reviewed by the Attending Physician. Vital Signs: 16:39 Pulse 55; Resp 18; Temp 97.8(TE); Pulse Ox 99% on R/A; Weight 48.99 kg; Height 5 ft. 0 tm6 in. ; Pain 0/10; 16:40 BP 221 / 127; tm6 17:46 BP 177 / 87; Pulse 57; Resp 16; Pulse Ox 97% ; tl4 18:22 BP 142 / 81; Pulse 65; Resp 16; Pulse Ox 98% ; tl4 19:50 BP 125 / 92; Pulse 63; Resp 16; Temp 98; Pulse Ox 97% ; Pain 0/10; bm8 16:39 Body Mass Index 21.09 (48.99 kg, 152.4 cm) tm6 16:39 Pain Scale: Adult tm6 19:50 Pain Scale: Adult bm8 Rafael Coma Score: 19:50 Eye Response: spontaneous(4). Motor Response: obeys commands(6). Verbal Response: bm8 oriented(5). Total: 15. MDM: 16:52 Patient medically screened. rt 17:55 Differential diagnosis: Hypertension, anxiety disorder. Data reviewed: vital signs, rt nurses notes. Consideration of Admission/Observation Escalation of care including admission/observation considered. I considered the following discharge prescriptions or medication management in the emergency department Medications were administered in the Emergency Department. See MAR. Counseling: I had a detailed discussion with the patient and/or guardian regarding the historical points, exam findings, and any diagnostic results supporting the discharge/admit diagnosis, the presence of at least one elevated blood pressure reading (>120/80) during this emergency department visit, lab results, the need for outpatient follow up. Response to treatment: the patient's symptoms have markedly improved after treatment. 18:07 ED course: I discussed findings of mildly elevated troponin with the patient. I did rt discuss admission with her. She states that she strongly does not wish to be admitted to the hospital. Plan to redraw troponin to assure that is downtrending. If uptrending, plan to admit. 02/10 17:01 Order name: CBC with Diff; Complete Time: 17:49 rt 02/10 17:01 Order name: CMP; Complete Time: 18:06 rt 02/10 17:01 Order name: Troponin High Sensitivity; Complete Time: 18:06 rt 02/10 17:34 Order name: CBC Smear Scan; Complete Time: 17:49 EDMS 02/10 18:06 Order name: Troponin High Sensitivity: draw at 1900; Complete Time: 19:49 rt 02/10 17:01 Order name: EKG; Complete Time: 17:02 rt 02/10 17:01 Order name: EKG - Nurse/Tech; Complete Time: 18:10 rt EC:53 Rate is 53 beats/min. Rhythm is regular, Normal Sinus Rhythm with No ectopy, LVH with rt repolarization abnormality, similar compared to prior EKG. QRS [place] is Normal. MA interval is normal. QRS interval is normal. QT interval is normal. No Q waves. Administered Medications: 17:14 Drug: amLODIPine PO 10 mg PO once Route: PO; tl4 17:44 Follow up: Response: No adverse reaction tl4 17:14 Drug: clonazePAM PO 1 mg PO once Route: PO; tl4 17:44 Follow up: Response: No adverse reaction tl4 Disposition Summary: 02/11/24 19:50 Discharge Ordered Notes: Location: Home cp Problem: new cp Symptoms: have improved cp Condition: Stable cp Diagnosis - Essential (primary) hypertension cp - Anxiety disorder, unspecified cp Followup: rt - With: Private Physician - When: 2 - 3 days - Reason: Discharge Instructions: - Discharge Summary Sheet rt - Hypertension, Adult rt - Managing Anxiety, Adult rt Forms: - Medication Reconciliation Form cp - Antibiotic Education cp - Prescription Opioid Use cp - Patient Portal Instructions cp - Leadership Thank You Letter cp Prescriptions: - clonazepam 1 mg Oral tablet - take 1 tablet ORAL route daily; 7 tablet; Refills: 0, Product Selection rt Permitted Signatures: Dispatcher [employer] EDMS Marco Seals PA PA cp Yuan Clifford MD MD rt Roxie Montalvo RN RN tm6 Alber Mercado RN RN tl4
--- NOTE | 2024-02-11 19:51 | ER ---
Nurse's Notes [facility] Name: Ara Pollock Age: 43 yrs Sex: Female : 1980 Arrival Date: 02/11/2024 Time: 16:32 Bed 19 Private MD: Diagnosis: Essential (primary) hypertension;Anxiety disorder, unspecified Presentation: 02/10 16:40 Chief complaint: Patient states: out of clonipin for 2-3 days. I lost my dog so I upped tm6 my dosage to deal with what I was going through and now I am out. 16:40 Method Of Arrival: Ambulatory tm6 19:44 Coronavirus screen: Vaccine status: Patient reports being unvaccinated. Ebola Screen: tm6 Patient negative for fever greater than or equal to 101.5 degrees Fahrenheit, and additional compatible Ebola Virus Disease symptoms Patient denies exposure to infectious person. Patient denies travel to an Ebola-affected area in the 21 days before illness onset. No symptoms or risks identified at this time. Initial Sepsis Screen: Does the patient meet any 2 criteria? No. Patient's initial sepsis screen is negative. Does the patient have a suspected source of infection? No. Patient's initial sepsis screen is negative. Risk Assessment: Do you want to hurt yourself or someone else? Patient reports no desire to harm self or others. Onset of symptoms was February 11, 2024. 19:44 Acuity: BEA 3 tm6 Triage Assessment: 16:40 General: Appears in no apparent distress. Behavior is cooperative, anxious. Pain: tm6 Denies pain. EENT: No signs and/or symptoms were reported regarding the EENT system. Neuro: Level of Consciousness is awake, alert, obeys commands, Oriented to person, place, time, situation. Cardiovascular: Reports lightheadedness, since this morning, but states she has not eaten at all today Patient's skin is warm and dry. Respiratory: Airway is patent Respiratory effort is even, unlabored, Respiratory pattern is regular, symmetrical. GI: No signs and/or symptoms were reported involving the gastrointestinal system. Abdomen is flat, non-distended. : No signs and/or symptoms were reported regarding the genitourinary system. Derm: No signs and/or symptoms reported regarding the dermatologic system. Musculoskeletal: No signs and/or symptoms reported regarding the musculoskeletal system. 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 - Infectious Disease History:: Denies. - Social history:: Smoking status: Patient reports the use of cigarette tobacco products, smokes one-half pack cigarettes per day, Patient uses alcohol, only on a social basis. - Family history:: not pertinent. Screenin:46 [facility] ED Fall Risk Assessment (Adult) History of falling in the last 3 months, tl4 including since admission No falls in past 3 months (0 pts) Confusion or Disorientation No (0 pts) Intoxicated or Sedated No (0 pts) Impaired Gait No (0 pts) Mobility Assist Device Used No (0 pt) Altered Elimination No (0 pt) Score/Fall Risk Level 0 - 2 = Low Risk Oriented to surroundings, Maintained a safe environment, Hourly rounding (assess needs \T\ fall precautionary measures) done. Abuse screen: Denies threats or abuse. Nutritional screening: No deficits noted. Tuberculosis screening: No symptoms or risk factors identified. Assessment: 17:46 General: Appears in no apparent distress. General: Appears Behavior is calm, tl4 cooperative. Pain: Denies pain. Neuro: No deficits noted. Cardiovascular: Reports ELEVATED BLOOD PRESSURE Patient's skin is warm and dry. Rhythm is sinus bradycardia. Respiratory: No deficits noted. GI: No deficits noted. No signs and/or symptoms were reported involving the gastrointestinal system. : No deficits noted. No signs and/or symptoms were reported regarding the genitourinary system. EENT: No deficits noted. No signs and/or symptoms were reported regarding the EENT system. Derm: No deficits noted. No signs and/or symptoms reported regarding the dermatologic system. Musculoskeletal: No deficits noted. No signs and/or symptoms reported regarding the musculoskeletal system. 19:50 Reassessment: Patient appears in no apparent distress at this time. Patient and/or bm8 family updated on plan of care and expected duration. Pain level reassessed. Patient is alert, oriented x 3, equal unlabored respirations, skin warm/dry/pink. General: Appears in no apparent distress. comfortable, Behavior is cooperative, appropriate for age, agitated. Pain: Denies pain. Neuro: No deficits noted. Level of Consciousness is awake, alert, obeys commands, Oriented to person, place, time, situation, Appropriate for age. Cardiovascular: Denies chest pain, lightheadedness, shortness of breath, Capillary refill < 3 seconds in bilateral fingers toes Patient's skin is warm and dry. Rhythm is sinus rhythm. Respiratory: No deficits noted. Airway is patent Respiratory effort is even, unlabored, Respiratory pattern is regular, symmetrical. GI: No deficits noted. No signs and/or symptoms were reported involving the gastrointestinal system. : No deficits noted. No signs and/or symptoms were reported regarding the genitourinary system. EENT: No deficits noted. No signs and/or symptoms were reported regarding the EENT system. Derm: No deficits noted. No signs and/or symptoms reported regarding the dermatologic system. Musculoskeletal: No deficits noted. No signs and/or symptoms reported regarding the musculoskeletal system. Vital Signs: 16:39 Pulse 55; Resp 18; Temp 97.8(TE); Pulse Ox 99% on R/A; Weight 48.99 kg; Height 5 ft. 0 tm6 in. ; Pain 0/10; 16:40 BP 221 / 127; tm6 17:46 BP 177 / 87; Pulse 57; Resp 16; Pulse Ox 97% ; tl4 18:22 BP 142 / 81; Pulse 65; Resp 16; Pulse Ox 98% ; tl4 19:50 BP 125 / 92; Pulse 63; Resp 16; Temp 98; Pulse Ox 97% ; Pain 0/10; bm8 16:39 Body Mass Index 21.09 (48.99 kg, 152.4 cm) tm6 16:39 Pain Scale: Adult tm6 19:50 Pain Scale: Adult bm8 Rafael Coma Score: 19:50 Eye Response: spontaneous(4). Motor Response: obeys commands(6). Verbal Response: bm8 oriented(5). Total: 15. ED Course: 16:35 Patient arrived in ED. ra3 16:37 Yuan Clifford MD is Attending Physician. rt 16:40 Arm band placed on right wrist. tm6 17:03 Alber Mercado, UKLDIP is Primary Nurse. tl4 17:46 Patient has correct armband on for positive identification. Bed in low position. Call tl4 light in reach. Side rails up X 1. Provided Education on: CALL LIGHT, LABS, MEDICATION. Door closed. Noise minimized. Warm blanket given. 17:46 No provider procedures requiring assistance completed. Initial lab(s) drawn, by me, tl4 sent to lab. EKG done, by ED staff, reviewed by Yuan Clifford MD. Patient did not have IV access during this emergency room visit. 17:59 Notified ED physician of a critical lab result(s). troponin 59.9. ll1 19:45 Triage completed. tm6 19:50 Provided Education on: post er care. bm8 Administered Medications: 17:14 Drug: amLODIPine PO 10 mg PO once Route: PO; tl4 17:44 Follow up: Response: No adverse reaction tl4 17:14 Drug: clonazePAM PO 1 mg PO once Route: PO; tl4 17:44 Follow up: Response: No adverse reaction tl4 Medication: 17:46 VIS not applicable for this client. tl4 Outcome: 19:50 Discharge ordered by MD. cp 19:50 Discharged to home ambulatory, bm8 19:50 Condition: stable 19:50 Discharge instructions given to patient, family, Instructed on discharge instructions, follow up and referral plans. no drinking with medication, no driving heavy equipment, medication usage, safety practices, Demonstrated understanding of instructions, follow-up care, medications, 19:52 Prescriptions given X 1, bm8 19:56 Patient left the ED. bm8 Signatures: Marco Seals PA PA cp Lewis, Lynsay, KULDIP RN ll1 Yuan Clifford MD MD rt Roxie Montalvo RN RN tm6 Alber Mercado RN RN tl4 Madison Parrish ra3 Moy Peterson, RN RN bm8
[2024-02-11 20:07] VITALS: BP 125/92; TEMP 98; O2SAT 97
--- NOTE | 2024-02-12 14:38 | EKG ---
Test Date: 2024-02-11 Test Time: 17:36:23 Churn Drill Operator: JAIMIE MEASUREMENT RESULTS: Intervals: Rate: 53 VT: 184 QRSD: 104 QT: 482 QTc: 452 [place]: P: 49 VT: 184 QRS: 66 T: 258 INTERPRETIVE STATEMENTS: Sinus bradycardia Left ventricular hypertrophy with repolarization abnormality Abnormal ECG Compared to ECG 09/13/2023 19:46:02 Sinus rhythm no longer present Prolonged QT interval no longer present Electronically Signed On 02-12-24 14:37:58 CDT by Anup Barrera
== END 2024-02-11 19:56 | disposition home or self-care (01) ==
LOC: ER 16:32
DX: I10 Essential (primary) hypertension (principal); F41.9 Anxiety disorder, unspecified; Z76.0 Encounter for issue of repeat prescription; F17.210 Nicotine dependence, cigarettes, uncomplicated
CPT/HCPCS: 36415; 80053; 84484; 85025; 93005; 99284

== ENCOUNTER 2024-10-14 23:58 | Observation (INO) | payer BC ==
--- OUTSIDE RECORDS SUMMARY | 2024-10-15 | XMS REPORT | Continuity of Care Document ---
Author Name Unknown Address [address] [facility] [address] [place], [place] [id number] [place] [address] [address] [facility] [place] [address] Care Team Providers Care Accessioner Name Role Phone MAURICIO ORDAZ Attending Clinician NADEGE Alanis Attending Clinician Unava ilable Payers Payer Name Policy Type Policy Number Effective Date Expirati on Date Source [facility] 2 [id number] 2024 00:00:00 Encounters Start Date/Time End Date/Time Encounter Type Admission Type Attending Clinicians Care Facility Care Department Encounter ID Source 2024-10-10 13:30:00 2024-10-10 13:30:00 Outpatient MAURICIO ORDAZ [id number] Patti Vasquez 2024-10-07 15:00:00 2024-10-07 15:00:00 Outpatient MAURICIO ORDAZ [id number] Patti Vasquez 2024-10-06 11:30:00 2024-10-06 11:30:00 Outpatient NADEGE PIÑA [id number] Patti Vasquez 2023-07-23 09:30:00 2023-07-23 09:30:00 Outpatient NADEGE PIÑA [id number] Patti Vasquez
[2024-10-15] MEDS ORDERED: NITROGLYCERIN 0.4 MG/TAB SL ONE (00:31)
[2024-10-15 01:25] LABS: PT Prothrombin Time 10.3 SECONDS (10-13.0); Protime INR 0.9
[2024-10-15 01:41] LABS: ALT/SGPT 31 U/L (13-56); AST/SGOT 43 U/L (15-37); Albumin 3.5 g/dL (3.4-5.0); Alkaline Phosphatase 110 U/L (45-117); Anion Gap 10.4 mEq/L (5.0-15.0); BUN Blood Urea Nitrogen 20 mg/dL (7-18); Bicarbonate 25 mEq/L (21-32); Bilirubin Total 0.3 mg/dL (0.2-1.0); Globulin 3.5 g/dL (2.3-3.5); Glomerular Filtration Rate 85 ml/min (=/>90); Glucose Level 104 mg/dL (74-106); Magnesium 1.7 mg/dL (1.6-2.4); NT PRO-BNP 1257 pg/mL (<125); Potassium 3.4 mEq/L (3.5-5.1); Sodium Level 142 mEq/L (136-145); Troponin High Sensitivity 41.2 pg/mL (<58.9)
[2024-10-15 01:42] LABS: Bilirubin Direct < 0.2 mg/dL (0-0.2); Bilirubin Indirect, Calculated 0.1 mg/dL (0.2-0.8)
[2024-10-15 01:43] LABS: Absolute Eosinophils 0.2 K/uL (0-0.5); Absolute Lymphocytes (CBC) 1.3 K/uL (0.7-4.9); Absolute Monocytes 0.4 K/uL (0.1-1.3); Absolute Neutrophil 2.1 K/uL (1.8-8.0); Eosinophils % 3.9 % (0-4.4); Hematocrit 25.1 % (36.0-45.0); Hemoglobin 7.9 g/dL (12.0-15.0); Lymphocytes % 33.1 % (15.3-44.8); MCH 19.2 pg (27.0-35.0); MCHC 31.4 g/dL (32.0-36.0); MCV 61.2 fL (80-100); MPV 8.1 fL (7.6-11.3); Monocytes % 9.1 % (3.3-12.3); Neutrophils % 53.9 % (41.7-73.7); Nucleated Red Blood Cells % 0.1 % (0-0); Platelets 310 thou/uL (152-406); Red Cell Distribution Width 21.3 % (12.1-15.2)
--- NOTE | 2024-10-15 02:06 | RAD REPORT ---
EXAM DESCRIPTION: Chest Single View [employer]Lex: XR CHEST 1 VIEW CLINICAL HISTORY: 43 years Female, CHEST PAIN COMPARISON: 09/14/2023 FINDINGS: Single portable AP semiupright view of the chest. Trachea is midline. Cardiac silhouette is mildly en larged. Nodular opacity projecting over the right lower chest measuring 1.4 cm probably represents patient's nipple shadow. No consolidation. No pleural effusion or pneumothorax. No acute osseous abno rmality. IMPRESSION: 1. Mild cardiomegaly. No acute radiographic abnormality. 2. Nodular opacity projecting over the right lower chest probably represents patient's nipple shado w. This can be confirmed with repeat radiograph with nipple markers. Electronically signed by: Trudi Mckinney MD 10/15/2024 01:56 AM CDT Due to temporary technical issues with the PACS/[employer] reporting system, reports are being adonis d by the in-house radiologist without review as a courtesy to ensure prompt reporting the interpreting radiologist is fully responsible for the content of the report. Transcribed Date/Time: 10/15/2024 2:06 AM
--- NOTE | 2024-10-15 02:27 | EDPHYS ---
Physician Documentation [facility] Name: Ara Pollock Age: 43 yrs Sex: Female : 1980 Arrival Date: 10/14/2024 Time: 23:58 Bed 17 Private MD: ED Physician Alexey Mendez HPI: 10/15 00:52 This 43 yrs old Black Female presents to ER via Ambulatory with complaints of Chest sp3 Pain, High Blood Pressure. 00:52 43-year-old female with history of anxiety, PTSD, hypertension, enlarged heart now sp3 presents to the ED with chief complaint mild chest pain and high blood pressure. She states her high blood pressure has been high "for 5 months" ever since she is started seeing psychiatry for her PTSD. She states she is on "some medication". She denies any shortness of breath, headache, neck pain, fever, cough, syncope, abdominal pain, vomiting, diarrhea, rash, or any other signs or symptoms on ROS at this time.. Historical: - PMHx: 00:07 Anxiety; Enlarged Heart; PTSD; Hypertensive disorder; br2 - PSHx: 00:07 section; br2 - Immunization history:: Adult Immunizations up to date. - Infectious Disease History:: Denies. - Social history:: Smoking status: Patient reports the use of cigarette tobacco products, smokes one-half pack cigarettes per day, Patient uses alcohol, occasionally. Patient/guardian denies using street drugs. ROS: 00:52 Constitutional: Negative for fever, chills, and weight loss, Eyes: Negative for injury, sp3 pain, redness, and discharge, Neck: Negative for injury, pain, and swelling, Respiratory: Negative for shortness of breath, cough, wheezing, and pleuritic chest pain, Abdomen/GI: Negative for abdominal pain, nausea, vomiting, diarrhea, and constipation, Back: Negative for injury and pain, MS/Extremity: Negative for injury and deformity, Skin: Negative for injury, rash, and discoloration, Neuro: Negative for headache, weakness, numbness, tingling, and seizure, Psych: Negative for depression, anxiety, suicide ideation, homicidal ideation, and hallucinations, Allergy/Immunology: Negative for hives, rash, and allergies, Endocrine: Negative for neck swelling, polydipsia, polyuria, polyphagia, and marked weight changes, Hematologic/Lymphatic: Negative for swollen nodes, abnormal bleeding, and unusual bruising, 00:52 All other systems are negative, Exam: 00:53 Constitutional: This is a well developed, well nourished patient who is awake, alert, sp3 and in no acute distress. Head/Face: Normocephalic, atraumatic. Eyes: Pupils equal round and reactive to light, extra-ocular motions intact. Lids and lashes normal. Conjunctiva and sclera are non-icteric and not injected. Cornea within normal limits. Periorbital areas with no swelling, redness, or edema. Neck: Trachea midline, no thyromegaly or masses palpated, and no cervical lymphadenopathy. Supple, full range of motion without nuchal rigidity, or vertebral point tenderness. No Meningismus. Chest/axilla: Normal chest wall appearance and motion. Nontender with no deformity. No lesions are appreciated. Cardiovascular: Regular rate and rhythm with a normal S1 and S2. No gallops, murmurs, or rubs. Normal PMI, no JVD. No pulse deficits. Respiratory: Lungs have equal breath sounds bilaterally, clear to auscultation and percussion. No rales, rhonchi or wheezes noted. No increased work of breathing, no retractions or nasal flaring. Abdomen/GI: Soft, non-tender, with normal bowel sounds. No distension or tympany. No guarding or rebound. No evidence of tenderness throughout. Back: No spinal tenderness. No costovertebral tenderness. Full range of motion. Skin: Warm, dry with normal turgor. Normal color with no rashes, no lesions, and no evidence of cellulitis. MS/ Extremity: Pulses equal, no cyanosis. Neurovascular intact. Full, normal range of motion. Neuro: Awake and alert, GCS 15, oriented to person, place, time, and situation. Cranial nerves II-XII grossly intact. Motor strength 5/5 in all extremities. Sensory grossly intact. Cerebellar exam normal. Normal gait. Psych: Awake, alert, with orientation to person, place and time. Behavior, mood, and affect are within normal limits. 00:53 ECG was reviewed by the Attending Physician. EKG demonstrates sinus bradycardia at 51 bpm with normal intervals with QTc at 446, high voltage with left ventricular hypertrophy and nonspecific diffuse ST/T changes without evidence of acute ischemia. Vital Signs: 00:03 BP 214 / 125; Pulse 62; Resp 18; Temp 97.2; Pulse Ox 100% ; Weight 46.72 kg; Height 5 br2 ft. 0 in. ; Pain 9/10; 00:30 BP 200 / 101; Pulse 59; Resp 17 S; Pulse Ox 99% on R/A; lg3 00:40 BP 161 / 100; Pulse 65; Resp 19 S; Pulse Ox 98% on R/A; lg3 01:30 BP 144 / 86; Pulse 60; Resp 18 S; Pulse Ox 99% on R/A; lg3 03:29 BP 134 / 87; Pulse 65; Resp 16 S; Pulse Ox 99% on R/A; lg3 04:02 BP 144 / 86; Pulse 60; Resp 19; Pulse Ox 98% on R/A; kmf 00:03 Body Mass Index 20.12 (46.72 kg, 152.4 cm) br2 00:03 Pain Scale: Adult br2 MDM: 00:24 Medical Screening Exam initiated sp3 00:54 Data reviewed: vital signs, nurses notes, lab test result(s), EKG, radiologic studies. sp3 ED course: 43-year-old female with psychiatric history as well as hypertension and now chest pain. Unknown CHF history. Differential diagnosis includes essential hypertension, ACS, CHF exacerbation, substance use, among others. I am not highly suspicious of sepsis, shock, PE, TAD, or any other critical process. Patient will receive nitroglycerin sublingual and we will obtain EKG, chest x-ray and full cardiac workup. Disposition pending workup patient course.. 10/15 00:24 Order name: Basic Metabolic Panel; Complete Time: 02:08 3 10/15 00:24 Order name: CBC with Diff; Complete Time: 03:33 3 10/15 00:24 Order name: LFT's; Complete Time: 02:08 10/15 00:24 Order name: Magnesium; Complete Time: 02:08 10/15 00:24 Order name: NT PRO-BNP; Complete Time: 02:08 10/15 00:24 Order name: PT-INR; Complete Time: 02:08 10/15 00:24 Order name: Troponin HS; Complete Time: 02:08 10/15 00:33 Order name: ETOH Level; Complete Time: 02:08 sp3 10/15 00:33 Order name: UDS; Complete Time: 03:33 sp3 10/15 02:07 Order name: CBC Smear Scan; Complete Time: 03:33 EDMS 10/15 03:46 Order name: CBC with Automated Diff EDMS 10/15 03:46 Order name: CBC with Automated Diff EDMS 10/15 03:46 Order name: Comprehensive Metabolic Panel EDMS 10/15 03:46 Order name: Comprehensive Metabolic Panel EDMS 10/15 03:46 Order name: Troponin High Sensitivity EDMS 10/15 03:46 Order name: Troponin High Sensitivity; Complete Time: 06:11 EDMS 10/15 03:46 Order name: Troponin High Sensitivity EDMS 10/15 03:46 Order name: Troponin High Sensitivity EDMS 10/15 00:24 Order name: XRAY Chest (1 view) sp3 10/15 00:24 Order name: EKG; Complete Time: 00:25 sp3 10/15 00:24 Order name: Cardiac monitoring; Complete Time: 00:46 sp3 10/15 00:24 Order name: EKG - Nurse/Tech; Complete Time: 00:46 sp3 10/15 00:24 Order name: IV Saline Lock; Complete Time: 00:46 sp3 10/15 00:24 Order name: Labs collected and sent; Complete Time: 00:46 sp3 10/15 00:24 Order name: O2 Per Protocol; Complete Time: 00:46 sp3 10/15 00:24 Order name: O2 Sat Monitoring; Complete Time: 00:46 sp3 Administered Medications: 00:30 Drug: Nitroglycerin Sublingual 0.4 mg Sublingual once; every five minute if needed x3 lg3 Route: Sublingual; 00:40 Drug: Nitroglycerin Sublingual 0.4 mg Sublingual once; every five minute if needed x3 lg3 Route: Sublingual; 04:54 Follow up: Response: No adverse reaction; Marked relief of symptoms; Blood pressure is lg3 lowered 02:36 Drug: Furosemide IVP 40 mg IVP once; give over 2 minutes Route: IVP; Site: right lg3 forearm; 04:54 Follow up: Response: No adverse reaction; Marked relief of symptoms; Blood pressure is lg3 lowered Disposition Summary: 10/15/24 02:26 Hospitalization Ordered Notes: Hospitalization Status: Observation sp3 Provider: Willie Rae sp3 Location: Telemetry/MedSurg (observation)(10/15/24 02:26) sp3 Condition: Stable(10/15/24 02:26) sp3 Problem: an acute exacerbation sp3 Symptoms: have worsened sp3 Bed/Room Type: Standard sp3 Room Assignment: 426(10/15/24 03:57) [facility] Diagnosis - Chest pain, hypertensive urgency, CHF exacerbation sp3 Forms: - Medication Reconciliation Form sp3 - SBAR form sp3 - Leadership Thank You Letter sp3 Signatures: Dispatcher [employer] EDMS Zackery Alaniz, SLAB CONDITIONER SUPERVISOR-C SLAB CONDITIONER SUPERVISOR-Cla1 Kelly Concepcion RN RN lg3 Alexey Mendez MD MD sp3 Patti Laureano [facility] Yocasta Lopez RN RN br2 Corrections: (The following items were deleted from the chart) 00:25 00:25 BASIC METABOLIC PANEL+C.LAB.BRZ ordered. EDMS EDMS 00:25 00:25 CBC+H.LAB.BRZ ordered. EDMS EDMS 00:25 00:25 HEPATIC FUNCTION+C.LAB.BRZ ordered. EDMS EDMS 00:25 00:25 MAGNESIUM+C.LAB.BRZ ordered. EDMS EDMS 00:25 00:25 PROBNP+C.LAB.BRZ ordered. EDMS EDMS 00:25 00:25 PROTIME (+INR)+COAG.LAB.BRZ ordered. EDMS EDMS 00:25 00:25 Troponin High Sensitivity+C.LAB.BRZ ordered. EDMS EDMS 02:26 02:25 Home sp3 sp3 02:26 02:25 Stable sp3 sp3 02:26 02:25 Chest pain, unspecified sp3 sp3 02:26 02:25 CHF sp3 sp3 03:57 02:26 sp3 kmf
--- NOTE | 2024-10-15 02:27 | ER ---
Nurse's Notes [facility] Name: Ara Pollock Age: 43 yrs Sex: Female : 1980 Arrival Date: 10/14/2024 Time: 23:58 Bed 17 Private MD: Diagnosis: Chest pain, hypertensive urgency, CHF exacerbation Presentation: 10/15 00:03 Chief complaint: Patient states: CHEST PAIN, LIGHTHEADED, STATES B/P ELEVATED. br2 Coronavirus screen: Client denies travel out of the [place] in the last 14 days. Ebola Screen: Patient denies exposure to infectious person. Initial Sepsis Screen: Does the patient meet any 2 criteria? No. Patient's initial sepsis screen is negative. Does the patient have a suspected source of infection? No. Patient's initial sepsis screen is negative. Risk Assessment: Do you want to hurt yourself or someone else? Patient reports no desire to harm self or others. Onset of symptoms was October 14, 2024 at 22:00. 00:03 Method Of Arrival: Ambulatory br2 00:03 Acuity: BEA 3 br2 Triage Assessment: 00:07 General: Appears uncomfortable, Behavior is calm, cooperative. Pain: Complains of pain br2 in mid-sternal area Pain does not radiate. Pain radiates to mid-sternal area Pain currently is 10 out of 10 on a pain scale. Historical: - PMHx: 00:07 Anxiety; Enlarged Heart; PTSD; Hypertensive disorder; br2 - PSHx: 00:07 section; br2 - Immunization history:: Adult Immunizations up to date. - Infectious Disease History:: Denies. - Social history:: Smoking status: Patient reports the use of cigarette tobacco products, smokes one-half pack cigarettes per day, Patient uses alcohol, occasionally. Patient/guardian denies using street drugs. Screenin:30 [facility] ED Fall Risk Assessment (Adult) History of falling in the last 3 months, lg3 including since admission No falls in past 3 months (0 pts) Confusion or Disorientation No (0 pts) Intoxicated or Sedated No (0 pts) Impaired Gait No (0 pts) Mobility Assist Device Used No (0 pt) Altered Elimination No (0 pt) Score/Fall Risk Level 0 - 2 = Low Risk Oriented to surroundings, Maintained a safe environment, Educated pt \T\ family on fall prevention, incl call for assistance when getting out of bed, Assessed \T\ reinforced patient's understanding of fall precautions. Abuse screen: Denies threats or abuse. Denies injuries from another. Nutritional screening: No deficits noted. Tuberculosis screening: No symptoms or risk factors identified. Assessment: 00:30 General: Appears in no apparent distress. comfortable, Behavior is calm, cooperative, lg3 fussy. Pain: Complains of pain in mid-sternal area Pain does not radiate. Pain began 1 day ago. Neuro: Santana Agitation-Sedation Scale (RASS): -1 Drowsy Level of Consciousness is awake, alert, obeys commands, Oriented to person, place, time, situation. Cardiovascular: No deficits noted. Reports chest pain, Heart tones S1 S2 present Capillary refill < 3 seconds Clubbing of nail beds is absent JVD is absent Patient's skin is warm and dry. Chest pain is described as vague, quality is pressure, squeezing, is located in substernal area. Respiratory: No deficits noted. Airway is patent Respiratory effort is even, unlabored, Respiratory pattern is regular, symmetrical. GI: No deficits noted. No signs and/or symptoms were reported involving the gastrointestinal system. : No signs and/or symptoms were reported regarding the genitourinary system. EENT: No deficits noted. No signs and/or symptoms were reported regarding the EENT system. Derm: No deficits noted. No signs and/or symptoms reported regarding the dermatologic system. Skin is intact, is healthy with good turgor, Skin is dry, Skin is normal, Skin temperature is warm. Musculoskeletal: No deficits noted. No signs and/or symptoms reported regarding the musculoskeletal system. Circulation, motion, and sensation intact. Range of motion: intact in all extremities. 01:39 Reassessment: Patient appears in no apparent distress at this time. No changes from lg3 previously documented assessment. Patient and/or family updated on plan of care and expected duration. Pain level reassessed. Patient is alert, oriented x 3, equal unlabored respirations, skin warm/dry/pink. 04:54 Reassessment: Patient appears in no apparent distress at this time. Patient and/or lg3 family updated on plan of care and expected duration. Pain level reassessed. Patient is alert, oriented x 3, equal unlabored respirations, skin warm/dry/pink. Patient states feeling better. Patient states symptoms have improved. Vital Signs: 00:03 BP 214 / 125; Pulse 62; Resp 18; Temp 97.2; Pulse Ox 100% ; Weight 46.72 kg; Height 5 br2 ft. 0 in. ; Pain 9/10; 00:30 BP 200 / 101; Pulse 59; Resp 17 S; Pulse Ox 99% on R/A; lg3 00:40 BP 161 / 100; Pulse 65; Resp 19 S; Pulse Ox 98% on R/A; lg3 01:30 BP 144 / 86; Pulse 60; Resp 18 S; Pulse Ox 99% on R/A; lg3 03:29 BP 134 / 87; Pulse 65; Resp 16 S; Pulse Ox 99% on R/A; lg3 04:02 BP 144 / 86; Pulse 60; Resp 19; Pulse Ox 98% on R/A; kmf 00:03 Body Mass Index 20.12 (46.72 kg, 152.4 cm) br2 00:03 Pain Scale: Adult br2 ED Course: 00:00 Patient arrived in ED. jj6 00:07 Triage completed. br2 00:07 Alexey Mendez MD is Attending Physician. sp3 00:07 Arm band placed on right wrist. br2 00:30 Patient has correct armband on for positive identification. Placed in gown. Bed in low lg3 position. Call light in reach. Side rails up X 1. Client placed on continuous cardiac and pulse oximetry monitoring. NIBP monitoring applied. secured entrance monitor on. Door closed. Noise minimized. Warm blanket given. Pillow given. 00:30 Initial lab(s) drawn, by me, sent to lab. EKG done, by ED staff, reviewed by Alexey Mendez MD. Inserted saline lock: 20 gauge in right forearm, using aseptic technique. Blood collected. Flushed with 10 mL NS. Patient maintains SpO2 saturation greater than 95% on room air. 00:41 Kelly Concepcion RN is Primary Nurse. lg3 00:46 Basic Metabolic Panel Sent. lg3 00:46 CBC with Diff Sent. lg3 00:46 LFT's Sent. lg3 00:46 Magnesium Sent. lg3 00:46 NT PRO-BNP Sent. lg3 00:46 PT-INR Sent. lg3 00:46 Troponin HS Sent. lg3 00:51 XRAY Chest (1 view) In Process Unspecified. EDMS 02:26 Willie Rae MD is Hospitalizing Provider. sp3 04:55 No provider procedures requiring assistance completed. Patient admitted, IV remains in lg3 place. 05:02 Provided Education on: admission. lg3 Administered Medications: 00:30 Drug: Nitroglycerin Sublingual 0.4 mg Sublingual once; every five minute if needed x3 lg3 Route: Sublingual; 00:40 Drug: Nitroglycerin Sublingual 0.4 mg Sublingual once; every five minute if needed x3 lg3 Route: Sublingual; 04:54 Follow up: Response: No adverse reaction; Marked relief of symptoms; Blood pressure is lg3 lowered 02:36 Drug: Furosemide IVP 40 mg IVP once; give over 2 minutes Route: IVP; Site: right lg3 forearm; 04:54 Follow up: Response: No adverse reaction; Marked relief of symptoms; Blood pressure is lg3 lowered Medication: 05:02 VIS not applicable for this client. lg3 Outcome: 02:25 Discharge ordered by . sp3 02:26 Decision to Hospitalize by Provider. sp3 04:55 Admitted to Tele accompanied by tech, via wheelchair, lg3 04:55 Condition: stable 04:55 Instructed on the need for admit, 05:02 Patient left the ED. lg3 Signatures: Dispatcher [employer] EDKelly Méndez, RN RN lg3 Alexey Mendez MD MD sp3 Marilyn Pandyaj6 Patti Laureano [facility] Yocasta Lopez RN RN br2
[2024-10-15] MEDS ORDERED: FUROSEMIDE 40 MG/4 ML VIAL ONE (02:32)
[2024-10-15 02:46] LABS: Platelet Estimate ADEQ; White Blood Cell Scan OK (OK)
[2024-10-15 02:47] LABS: Anisocytosis 1+; Blood Morphology Comment NOTED (NOT SEEN); Hypochromasia 2+; Microcytosis 2+; Polychromasia 1+
[2024-10-15 03:10] LABS: Barbiturates NEGATIVE (NEGATIVE); Benzodiazepines POSITIVE (NEGATIVE); Cocaine NEGATIVE (NEGATIVE); METHAMPHETAM NEGATIVE (NEGATIVE); Methadone NEGATIVE (NEGATIVE); Opiates NEGATIVE (NEGATIVE); Phencyclidine NEGATIVE (NEGATIVE); THC Cannibis POSITIVE (NEGATIVE)
[2024-10-15] MEDS ORDERED: ONDANSETRON 4 MG/2 ML VIAL IV PRN (03:41)
[2024-10-15] MEDS ORDERED: ACETAMINOPHEN 325 MG TABLET PO PRN (03:41)
[2024-10-15] MEDS ORDERED: clonazePAM 1 MG TAB PO PRN (03:44)
--- NOTE | 2024-10-15 03:47 | P.HP ---
Certification for Inpatient Patient admitted to: Observation With expected LOS: <2 Midnights Practitioner: I am a practitioner with admitting privileges, knowledge of patient current condition, hospital course, and medical plan of care. Services: Services provided to patient in accordance with Admission requirements found in Title 42 Section 412.3 of the Code of Federal Regulations Patient History Date of Service: 10/15/24 Reason for admission: Chest Pain History of Present Illness: 43 yrs old Female with past medical history of anxiety ,PTSD, hypertension, enlarged heart who came in with chest discomfort and high blood pressure. Chest pain is retrosternal with no radiation, intermittent, associated with some dizziness. No fever or chills. Denies any shortness of breath. No nausea vomiting or diarrhea. No upper respiratory tract symptoms. Denies any sick contacts. She also states that her blood pressure has been high for the last few months. Pain is pressure-like, intermittent, 4 out of 10 in severity at the time of interview. Patient was assessed in the ER and is admitted for further management of chest pain rule out ACS Allergies No Known Allergies Allergy (Unverified 09/14/23 01:33) Home medications list reviewed: Yes Home Medications: Olanzapine [Zyprexa] 5 mg PO BEDTIME 09/14/23 Sertraline [Zoloft*] 50 mg PO DAILY AT SUPPER 09/14/23 clonazePAM [Clonazepam] 1 mg PO PRN PRN 09/14/23 - Past Medical/Surgical History Diabetic: No Past Medical History: Reviewed- Non-Contributory -: PTSD -: Anemia -: Depression -: Anxiety -: OCD Past Surgical History: Reviewed- Non-Contributory - Family History Family History: Reviewed- Non-Contributory - Social History Smoking Status: Current some day smoker Alcohol use: No CD- Drugs: No Caffeine use: Yes Review of Systems 10-point ROS is otherwise unremarkable Physical Examination - Vital Signs Temperature: 97.2 F Blood Pressure: 186/92 Pulse: 68 Respirations: 18 Pulse Ox (%): 94 - Physical Exam General: Alert, In no apparent distress, Oriented x3 HEENT: Atraumatic, Normocephalic Neck: Supple, JVD not distended Respiratory: Clear to auscultation bilaterally, Normal air movement Cardiovascular: Regular rate/rhythm, Normal S1 S2 Capillary refill: <2 Seconds Gastrointestinal: Soft and benign, W/out hepatosplenomegaly Musculoskeletal: No clubbing, No swelling Integumentary: No rashes Neurological: Other (Alert awake nonfocal) Lymphatics: No axilla or inguinal lymphadenopathy - Studies Laboratory Data (last 24 hrs) 10/15/24 10/15/24 10/15/24 00:38 00:38 00:38 WBC 3.90 L Hgb 7.9 L Hct 25.1 L Plt Count 310 PT 10.3 INR 0.90 Sodium 142 Potassium 3.4 L BUN 20 H Creatinine 0.87 Glucose 104 Magnesium 1.7 Total Bilirubin 0.3 AST 43 H ALT 31 Alkaline Phosphatase 110 Assessment and Plan - Plan Chest pain to rule out ACS Will trend cardiac enzymes Will monitor telemetry Started on aspirin and statin EKG did not show any acute changes suggestive of ischemia Cardiology consult Will get a CT chest PE protocol Hypertension Will start on antihypertensives Hydralazine as needed Continue home medications and titrate as needed PTSD Anxiety Depression Continue home medications and titrate as needed Hypokalemia Monitor electrolytes and replace accordingly Substance abuse Advised cessation GI/DVT prophylaxis Advanced directive full code Discharge Plan: Home Plan to discharge in: 48 Hours - Advance Directives Does patient have a Living Will: No Does patient have a Durable POA for Healthcare: No - Code Status/Comfort Care Code Status: Full Code Time Spent Managing Pts Care (In Minutes): 48
[2024-10-15 05:20] VITALS: O2SAT 98
[2024-10-15] MEDS ORDERED: HYDRALAZINE HCL 20 MG/ML VIAL IV PRN (05:40)
[2024-10-15] MEDS: AMLODIPINE 5 MG TAB PO ONE (06:20)
[2024-10-15] MEDS: ENOXAPARIN 40 MG/0.4 ML SQ SCH (09:55)
[2024-10-15] MEDS: ASPIRIN EC 81 MG TAB PO SCH (09:55)
[2024-10-15] MEDS: POTASSIUM 25 MEQ EFFERV TAB PO ONE (09:58)
[2024-10-15 12:40] VITALS: TEMP 98
[2024-10-15 12:41] VITALS: BP 204/128
--- NOTE | 2024-10-15 13:27 | RAD REPORT ---
EXAM: CT Chest For Pe Angio TECHNIQUE: CT angiogram of the chest was performed following intravenous contrast administration, inc luding sagittal and coronal as well as maximum intensity projection reformats. One or more of the following dose reduction techniques were used: Automated exposure control, adjustment of the mA and k V according to patient size, and iterative reconstruction. Unless otherwise specified, incidental findings do not require dedicated imaging follow-up. INDICATION: R/o PE COMPARISON: 09/13/2023. FINDINGS: LINES/TUBES: None. PULMONARY ARTERIES: Main pulmonary arteries are normal in caliber. No filling defects within the pul monary arteries to suggest pulmonary embolus. LUNGS AND AIRWAYS: The lungs and central airways are normal without focal abnormality. PLEURA: No effusion or pneumothorax. HEART AND MEDIASTINUM: The visualized thyroid gland is normal. No mediastinal, hilar, or axillary lym phadenopathy. Heart is unremarkable. No pericardial effusion. SOFT TISSUES AND BONES: No acute osseous abnormality. No significant soft tissue finding. UPPER ABDOMEN: Unremarkable. IMPRESSION: No evidence of acute central pulmonary emboli. No suspicious intrathoracic findings..
[2024-10-15] MEDS ORDERED: SERTRALINE HCL 50 MG TAB PO SCH (17:00)
[2024-10-15] MEDS ORDERED: ATORVASTATIN 40 MG TAB PO SCH (21:00)
[2024-10-15] MEDS ORDERED: OLANZapine 2.5 MG TAB PO SCH (21:00)
--- NOTE | 2024-10-17 12:10 | EKG ---
Test Date: 2024-10-15 Test Time: 00:34:16 Data Virtualization Consultant: MEASUREMENT RESULTS: Intervals: Rate: 51 VT: 198 QRSD: 106 QT: 484 QTc: 446 [place]: P: 67 VT: 198 QRS: 10 T: 224 INTERPRETIVE STATEMENTS: Sinus bradycardia Left ventricular hypertrophy with repolarization abnormality Abnormal ECG Compared to ECG 02/11/2024 17:36:23 No significant changes Electronically Signed On 10-17-24 12:07:29 CDT by Anup Barrera
== END 2024-10-15 12:10 | disposition left against medical advice (07) ==
LOC: ER 23:58 → 4TH 10-15 03:41
PROVIDERS: ADMIT Family Medicine; ATTEND Internal Medicine
DX: R07.9 Chest pain, unspecified (principal); F41.9 Anxiety disorder, unspecified; F43.10 Post-traumatic stress disorder, unspecified; I51.7 Cardiomegaly; I10 Essential (primary) hypertension; F32.A Depression, unspecified; F17.210 Nicotine dependence, cigarettes, uncomplicated; E87.6 Hypokalemia; F12.10 Cannabis abuse, uncomplicated; F10.10 Alcohol abuse, uncomplicated; F19.90 Other psychoactive substance use, unspecified, uncomplicated; Y90.6 Blood alcohol level of 120-199 mg/100 ml; Z71.51 Drug abuse counseling and surveillance of drug abuser
CPT/HCPCS: 93005; 85025; 80048; 36415; 83735; 85610; 85379; 80076; 84484 ×2; 83880; 80307; 71275; 71045; 96374; 99285; 82077; Q9967; J1938; J1650; G0378 ×2; J0360